=== PATIENT | male | born 1965 | race Caucasian/White ===

== ENCOUNTER 2018-04-01 07:46 | Day surgery (SDC) | payer OTHER ==
[2018-04-01] MEDS: LACTATED RINGER'S 1,000 ML IV (09:47)
[2018-04-01] MEDS: PHENYLephrine 10% 5 ML OPH OPER ×3 (09:47→09:58)
[2018-04-01] MEDS: MOXIFLOXACIN 0.5% 3 ML OPH OPER ×3 (09:47→09:58)
[2018-04-01] MEDS: TROPICAMIDE 1% 3 ML OPH OPER ×3 (09:47→09:58)
[2018-04-01] MEDS: CYCLOPENTOLATE 2% 2 ML OPH OPER ×3 (09:48→09:58)
[2018-04-01] MEDS: BROMFENAC SODIUM 1.7 ML OPH DROP OPER ×3 (09:48→09:58)
[2018-04-01] MEDS: TETRACAINE 0.5% 4 ML OPH OPER ×3 (09:49→09:58)
[2018-04-01] MEDS: LIDOCAINE 3.5% GEL TUBE OPER (09:59)
[2018-04-01] MEDS ORDERED: FENTAnyl 50 MCG/ML VIAL (10:45)
[2018-04-01] MEDS ORDERED: MIDAZOLAM 1 MG/ML 2 ML INJ ×2 (10:45→10:46)
[2018-04-01] MEDS ORDERED: ONDANSETRON 4 MG INJ (11:00)
[2018-04-01] MEDS ORDERED: LABETALOL HCL 20MG INJ IV (11:00)
[2018-04-01] MEDS ORDERED: OXYCODONE/ACETAMINOPHEN (5/325) TAB PO (11:00)
[2018-04-01] MEDS ORDERED: HYDROmorphONE 1 MG/5 ML IV SYRINGE IV ×2 (11:00)
[2018-04-01] MEDS ORDERED: ONDANSETRON 4 MG INJ IV (11:00)
[2018-04-01] MEDS ORDERED: METOCLOPRAMIDE 10 MG INJ (11:00)
[2018-04-01] MEDS ORDERED: EPHEDrine SULFATE 50 MG/5 ML SYG IV (11:00)
[2018-04-01] MEDS ORDERED: METOCLOPRAMIDE 10 MG INJ IV (11:00)
[2018-04-01] MEDS ORDERED: FENTAnyl 50 MCG/ML VIAL IV ×2 (11:00)
[2018-04-01] MEDS ORDERED: CARBACHOL 0.01% 1.5 ML OPH INJ (11:12)
== END 2018-04-01 14:04 | disposition home or self-care (01) ==
LOC: SDS 07:46
DX: H25.041 Posterior subcapsular polar age-related cataract, right eye (principal); E11.9 Type 2 diabetes mellitus without complications; E78.2 Mixed hyperlipidemia; I50.31 Acute diastolic (congestive) heart failure; Z79.84 Long term (current) use of oral hypoglycemic drugs
CPT/HCPCS: 66984; 82962